=== PATIENT | female | born 1995 | race Caucasian/White ===

== ENCOUNTER 2022-02-12 17:13 | Emergency (ER) | payer MEDICAID ==
[~2022-02-12] VITALS: Ht 160 cm; Wt 81.2 kg
[2022-02-12 17:33] VITALS: BP 120/72
[2022-02-12] MEDS ORDERED: KETOROLAC 30 MG/ML VIAL IM ONE (17:50)
[2022-02-12] MEDS ORDERED: NAPR-1704 PO (19:43)
[2022-02-12 20:29] VITALS: BP 13/70
== END 2022-02-12 20:29 | disposition home or self-care (01) ==
LOC: MED 17:13
DX: S20.212A Contusion of left front wall of thorax, initial encounter (principal); Z79.1 Long term (current) use of non-steroidal anti-inflammatories (NSAID); W22.8XXA Striking against or struck by other objects, initial encounter; Y92.89 Other specified places as the place of occurrence of the external cause; Y93.89 Activity, other specified; Y99.8 Other external cause status
CPT/HCPCS: 71101; 81025; 96372; 99283; J1885

== ENCOUNTER 2022-08-25 15:17 | Emergency (ER) | payer MEDICAID ==
[~2022-08-25] VITALS: Ht 160 cm; Wt 83.0 kg
[~2022-08-25 15:17] MED LIST: NAPR-1704 PO
[2022-08-25 15:42] VITALS: BP 134/69
--- NOTE | 2022-08-25 16:00 | NUR ---
C/O 01/19 MID ABDOMINAL PAIN, LOWER BACK PAIN, AGUIRRE, N/V/D X 3 DAYS.
[2022-08-25] MEDS ORDERED: ONDANSETRON 4 MG ODT PO ONE (17:20)
[2022-08-25] MEDS ORDERED: DEXAMETHASONE 10 MG/ML VIAL PO ONE (17:20)
[2022-08-25] MEDS ORDERED: IBUP-2213 PO (17:29)
[2022-08-25] MEDS ORDERED: LOPE-289 PO (17:29)
[2022-08-25] MEDS ORDERED: ONDA-188 SL (17:29)
--- NOTE | 2022-08-25 18:12 | NUR ---
STREP, THROAT CULTURE, COVID, FLU SWABS DONE.
[2022-08-25] MEDS ORDERED: PENI500T20 PO (19:18)
[2022-08-25] MEDS ORDERED: PENICILLIN V POTASSIUM 250 MG TAB PO ONE (19:20)
[2022-08-25 21:07] VITALS: BP 134/69
--- NOTE | 2022-08-25 21:07 | NUR ---
Patient discharged with v/s stable. Written and verbal after care instructions given and explained. Patient alert, oriented and verbalized understanding of instructions. Ambulatory with steady gait. All questions addressed prior to discharge. ID band removed. Patient advised to follow up with PMD. Rx of LOPERAMIDE, ZOFRAN, PCN VPOTASSIOM given. Patient educated on indication of medication including possible reaction and side effects. Opportunity to ask questions provided and answered.
== END 2022-08-25 21:07 | disposition home or self-care (01) ==
LOC: MED 15:17
DX: B27.90 Infectious mononucleosis, unspecified without complication (principal); J02.0 Streptococcal pharyngitis; R11.2 Nausea with vomiting, unspecified; R19.7 Diarrhea, unspecified; Z20.822 Contact with and (suspected) exposure to COVID-19; R53.83 Other fatigue; Z79.899 Other long term (current) drug therapy; Z79.1 Long term (current) use of non-steroidal anti-inflammatories (NSAID)
CPT/HCPCS: 81025; 87081; 87426; 87804; 99284; J1100; Q0162